=== PATIENT | female | born 1990 | race Caucasian/White ===

== ENCOUNTER 2021-03-03 20:06 | Emergency (ER) | payer SELFPAY ==
[2021-03-03 20:23] VITALS: BP 132/93; PULSE 90; RESP 16; TEMP 36.9; O2SAT 97; BMI 33.9
--- NOTE | 2021-03-03 20:47 | W.ED.FEMALGU ---
HPI - Female Genitourinary General: Chief complaint: Urogenital-Female Stated complaint: FLANK PAIN Time Seen by Provider: 03/03/21 20:22 Source: patient Mode of arrival: ambulatory Limitations: no limitations History of Present Illness: HPI Narrative: Patient is a 30-year-old female who presents to ED today with complaint of bilateral flank pain over the past 7 days. 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 She states she was treated on a telehealth visit in [place] and states the provider placed her on Macrobid. She completed 5 days of this without improvement. Was seen again and placed on Bactrim. She has had 4 out of her 5 day course and does not seem to be improving. She complains of urinary frequency and dark urine. No dysuria. No vomiting. No fevers. No injury or trauma to her back. MD elicited complaint: flank pain Pertinent past history: other (pyelonephritis ) Onset (ago): day(s) Location of symptoms: flank Severity: moderate Quality of pain: sharp Consistency: constant Vaginal discharge: none Vaginal bleeding: none Urinary symptoms: Flank Pain and Frequency Exacerbating factors: none Relieving factors: none Associated symptoms: Reports nausea; Deny abdominal pain, headache(s) or vaginal discharge Treatment prior to arrival: other (antibiotics ) Patient : No Date of Last Menstrual Period: 02/19/21 Review of Systems Const: Denies: fever(s), chills, body aches, change in appetite, change in weight, fatigue or malaise Card: Denies: chest pain Resp: Denies: dyspnea GI: Reports: nausea; Denies: abdominal pain, vomiting, diarrhea or change in bowel habits : Reports: flank pain and urinary frequency; Denies: difficulty voiding, urinary hesitancy, dribbling, urinary incontinence, genital lesions, genital pruritis, vaginal odor, vaginal bleeding or vaginal discharge Musc: Reports: back pain (flanks); Denies: neck pain, extremity pain, extremity swelling, joint pain or joint swelling Skin/Breast: Denies: rash Neuro: Denies: headache(s), numbness in extremities, weakness in extremities or sensory changes FOR[facility]LY [facility], [facility] ED Female Reproductive History: Date of last menstrual period: 02/19/21 Physical Exam Const: COMMON NORMALS: no acute distress, patient oriented x3, no limitations and alert GENERAL APPEARANCE: cooperative NUTRITIONAL APPEARANCE: overweight ORIENTATION/CONSCIOUSNESS: Yes awake, Yes oriented to person, Yes oriented to place and Yes oriented to time HENMT: COMMON NORMALS: normocephalic and atraumatic HEAD & SCALP: normocephalic and atraumatic Resp: COMMON NORMALS: normal respiratory effort and clear to auscultation bilaterally AUSCULTATION: clear to auscultation bilaterally Cardio: COMMON NORMALS: regular rate and regular rhythm RATE: regular rate RHYTHM: regular rhythm GI: COMMON NORMALS: Normal to inspection, nondistended, normoactive bowel sounds present, Soft to palpation, non-tender, No hepatosplenomegaly present and no masses PALPATION: Yes Soft to palpation and Yes No hepatosplenomegaly present : BLADDER/KIDNEY EXAM: Yes CVA tenderness bilateral Back/Pelvis: COMMON NORMALS: thoracic and lumbar spine normal to inspection, no thoracic nor lumbar tenderness, thoraco-lumbar ROM normal and straight leg raise negative bilaterally GENERAL BACK: Yes CVA tenderness Extremity: COMMON NORMALS: normal to inspection Neuro: COMMON NORMALS: patient oriented x3, moves all extremities, no focal motor deficits, no sensory deficits noted and gait normal SENSORIUM/ORIENTATION: Yes alert, Yes oriented to person, Yes oriented to place and Yes oriented to time Skin: COMMON NORMALS: no rashes or lesions noted GENERAL SKIN EXAM: no rashes or lesions noted TRAUMA: no lacerations or abrasions Course Vital Signs: Vital signs: Vital Signs Temperature 98.4 F 03/03/21 20:23 Pulse Rate 76 03/03/21 21:32 Respiratory Rate 16 03/03/21 21:32 Blood Pressure 121/80 03/03/21 20:56 Pulse Oximetry 97 03/03/21 21:32 MDM - Female MDM Narrative: Medical decision making narrative: Patient here with bilateral flank pain x1 week. She is not tachycardic or febrile. Her white count is 11.4. Her UA is completely normal. Given her tenderness and history I did elect to CT her abdomen/pelvis. This was essentially unremarkable. She did have a tiny nonobstructing right kidney stone. Incidental finding of adrenal nodule that she was made aware of. There was no evidence for pyelonephritis, hydronephrosis, or any other acute abnormalities at this time. Patient states she has an appointment with primary care next week. Recommend she follow-up regarding her discomfort. Strict return to ED precautions given for the weekend. Lab Data: Attestation: I reviewed the patient's lab results. Labs: Lab Results 03/03/21 03/03/21 03/03/21 Range/Units 20:37 20:50 20:50 WBC 11.4 H (4.0-10.0) 10^3/ uL RBC 4.41 (4.1-5.3) 10^6/u L Hgb 13.4 (11.5-15.3) g/dL Hct 40.1 (37.0-47.0) % MCV 90.9 (81-99) fL MCH 30.4 (28.0-34.0) pg MCHC 33.4 (30.0-36.0) g/dL RDW 12.5 (12.1-15.1) % Plt Count 313 (130-400) 10^3/c mm MPV 9.5 (7.4-10.4) fL Neut % (Auto) 62.0 % Lymph % (Auto) 26.3 % [place] % (Auto) 7.6 % Eos % (Auto) 3.1 % Baso % (Auto) 0.7 % Neut # (Auto) 7.09 (1.8-7.7) 10^3/u L Lymph # (Auto) 3.0 (0.8-4.8) 10^3/u L [place] # (Auto) 0.9 (0.2-0.9) 10^3/u L Eos # (Auto) 0.4 (0.0-0.8) 10^3/u L Baso # (Auto) 0.1 (0.0-0.1) 10^3/u L Nucleated RBC % (a uto) 0 % Nucleated RBCs # 0.0 /100WBC Sodium Cancelled Potassium Cancelled Chloride Cancelled Carbon Dioxide Cancelled Anion Gap Cancelled BUN Cancelled Creatinine Cancelled GFR Calculation Cancelled Glucose Cancelled Calculated Osmolal ity Cancelled Lactic Acid (0.5-2.2) mmol/L Calcium Cancelled Total Bilirubin Cancelled AST Cancelled ALT Cancelled Alkaline Phosphata se Cancelled Total Protein Cancelled Albumin Cancelled Globulin Cancelled HCG, Qual (Negative) Urine Color Straw (Yellow) Urine Appearance Clear (CLEAR) Urine pH 6 (5-7) Ur Specific Gravit y 1.010 (1.005-1.030) Urine Protein Neg (Negative) Urine Glucose (UA) Norm (Normal) Urine Ketones Negative (Negative) Urine Blood Neg (Negative) Urine Nitrate Negative (Negative) Urine Bilirubin Neg (Negative) Urine Urobilinogen Norm (Negative) mg/dL Ur Leukocyte Belk[place] ase Negative (Negative) 03/03/21 03/03/21 03/03/21 Range/Units 20:50 21:07 21:26 WBC (4.0-10.0) 10^3/ uL RBC (4.1-5.3) 10^6/u L Hgb (11.5-15.3) g/dL Hct (37.0-47.0) % MCV (81-99) fL MCH (28.0-34.0) pg MCHC (30.0-36.0) g/dL RDW (12.1-15.1) % Plt Count (130-400) 10^3/c mm MPV (7.4-10.4) fL Neut % (Auto) % Lymph % (Auto) % [place] % (Auto) % Eos % (Auto) % Baso % (Auto) % Neut # (Auto) (1.8-7.7) 10^3/u L Lymph # (Auto) (0.8-4.8) 10^3/u L [place] # (Auto) (0.2-0.9) 10^3/u L Eos # (Auto) (0.0-0.8) 10^3/u L Baso # (Auto) (0.0-0.1) 10^3/u L Nucleated RBC % (a uto) % Nucleated RBCs # /100WBC Sodium 135 L Potassium 4.1 Chloride 100 Carbon Dioxide 25 Anion Gap 14.1 BUN 11 Creatinine 0.8 GFR Calculation 83.1 L Glucose 95 Calculated Osmolal ity 279 L Lactic Acid 0.9 (0.5-2.2) mmol/L Calcium 8.9 Total Bilirubin 0.2 AST 9 ALT 8 Alkaline Phosphata se 57 Total Protein 6.8 Albumin 4.3 Globulin 2.5 HCG, Qual Negative (Negative) Urine Color (Yellow) Urine Appearance (CLEAR) Urine pH (5-7) Ur Specific Gravit y (1.005-1.030) Urine Protein (Negative) Urine Glucose (UA) (Normal) Urine Ketones (Negative) Urine Blood (Negative) Urine Nitrate (Negative) Urine Bilirubin (Negative) Urine Urobilinogen (Negative) mg/dL Ur Leukocyte Belkis ase (Negative) Imaging Data: CT Abd/Pel: Radiologist's impression: [address] [id number] Scan ReportSigned Patient: Lala Winn AUnit #: [id number]: [id number]#:[id number]/Sex: 30 / FADM Date: 03/03/21Loc: ERRoom/Bed:Attending Dr: Ordering Provider/Ordering MD: Ingrid Thorpe Date of Service: 03/03/21 Procedure(s): CT abdomen pelvis w con* [id number] Accession Number(s): [id number] Report Number: [id number] PROCEDURE INFORMATION: Exam: CT Abdomen And Pelvis With Contrast Exam date and time: 03/03/2021 10:00 PM Age: 30 years old Clinical indication: Abdominal pain; Lower; Prior surgery; Surgery date: 6+ months; Surgery type: Tailbone cyst; Patient HX: Bilateral flank pain x 3 wks TECHNIQUE: Imaging protocol: Computed tomography of the abdomen and pelvis with contrast. Total images: 274 Radiation optimization: All CT scans at this facility use at least one of these dose optimization techniques: automated exposure control; mA and/or kV adjustment per patient size (includes targeted exams where dose is matched to clinical indication); or iterative reconstruction. Contrast material: 95 ML OMNIPAQUE 300; Contrast volume: 95 ml; Contrast route: INTRAVENOUS (IV); COMPARISON: No relevant prior studies available. RADIATION DOSE METRICS: Total DLP (mGy-cm): 1524.5 FINDINGS: Lungs: Limited assessment of the lung bases fails to reveal evidence for active cardiopulmonary process. Liver: No visible hepatic mass or cystic structure. Gallbladder and bile ducts: Normal. No calcified stones. No ductal dilation. Pancreas: Pancreas is unremarkable. No visible pancreatic ductal ectasia. Spleen: Spleen unremarkable. Adrenal glands: Right adrenal nodule that measures 24 mm x 20 mm x 21 mm. Left adrenal gland normal. Kidneys and ureters: Bilateral duplex renal collecting systems. Moderate pelvicaliectasis of the inferior pole moiety of the right kidney with cortical scarring and thinning consistent with chronic reflux. No visible ureterolithiasis. Tiny nonobstructing calyceal nephrolithiasis foci at the equator of the right kidney superior pole moiety measuring under 3 mm. No superior pole moiety hydronephrosis or hydroureter. No visible ureterolithiasis of the superior pole moiety. Left kidney without hydronephrosis, nephrolithiasis, nephrocalcinosis, or ureterolithiasis. No evidence for pyelonephritis bilaterally. Stomach and bowel: Assessment of the hollow viscus fails to reveal evidence of active or acute pathology. Nonobstructed bowel pattern. No visible acute diverticulitis. No visible adynamic or reactive ileus. Appendix: The appendix is visualized and appears noninflamed. Intraperitoneal space: No visible evidence of mesenteric lymphadenitis or active mesenteritis/panniculitis. No visible pneumoperitoneum or intraperitoneal ascites. Vasculature: Portal vein patent. The abdominal aorta is nonaneurysmal. Lymph nodes: No current visible evidence of active mesenteric or retroperitoneal lymphadenopathy. Urinary bladder: Urinary bladder unremarkable. No visible bladder stone. Reproductive: Unremarkable as visualized. Bones/joints: No visible active or acute osseous pathology. Soft tissues: Unremarkable. CT/CT abdomen pelvis w con* [id number] IMPRESSION: 1. Bilateral duplex renal collecting systems. 2. Moderate pelvicaliectasis of the inferior pole moiety of the right kidney with cortical scarring and thinning consistent with chronic reflux. No visible ureterolithiasis. 3. Tiny nonobstructing calyceal nephrolithiasis foci at the equator of the right kidney superior pole moiety measuring under 3 mm. No superior pole moiety hydronephrosis or ureterolithiasis. 4. Left kidney without hydronephrosis, nephrolithiasis, nephrocalcinosis, or ureterolithiasis. 5. Right adrenal nodule that measures 24 mm x 20 mm x 21 mm. Non-emergent adrenal CT is recommended. (Reference: Edgardo). COMMENTS: Consistent with the [employer]'s Incidental Findings Committee white paper (J Am Drew Radiol 2018): Any incidental renal lesion less than 1 cm or classified as too small to characterize, or any incidental cystic renal lesion characterized as simple-appearing, is likely benign. No follow-up imaging is recommended for these lesions per consensus recommendations based on imaging criteria. REFERENCES: Edgardo SWAN et al. Management of Incidental Adrenal Masses: A White Paper of the ACR Incidental Findings Committee. J Am Drew Radiol. 2017;14(8):9525-2929. Radiation Dose CTDIVOL = (mGy): DLP = 1524.5 (mGy-cm) Dictated By:Mariluz Falcon By:Mariluz Falcon Date/Time:03/03/21 [id number]/ [id number] Discharge Plan Discharge Patient Disposition: Home Clinical Impression: Bilateral flank pain Condition: Stable Discharge Orders: Discharge ED (Routine); Ordered 03/04/21 Ordered By: Ingrid Thorpe Patient Instructions: Flank Pain (ED) Coding Level of Care Code ED Civil Structural Engineer for Chg Fwd Exam Comprehensive
[2021-03-03 20:55] LABS: Add Urine Microscopic? NO; Charge for UA Resulting for Rev
[2021-03-03 20:56] VITALS: BP 121/80; PULSE 74; RESP 16; O2SAT 97
[2021-03-03 20:58] LABS: Basophils # 0.1 10^3/uL (0.0-0.1); Basophils % 0.7 %; Eosinophils # 0.4 10^3/uL (0.0-0.8); Eosinophils % 3.1 %; Hematocrit 40.1 % (37.0-47.0); Hemoglobin 13.4 g/dL (11.5-15.3); Lymphocytes % 26.3 %; Mean Corpuscular HGB Conc 33.4 g/dL (30.0-36.0); Mean Corpuscular Hemoglobin 30.4 pg (28.0-34.0); Mean Corpuscular Volume 90.9 fL (81-99); Mean Platelet Volume 9.5 fL (7.4-10.4); Monocytes # 0.9 10^3/uL (0.2-0.9); Monocytes % 7.6 %; Neutrophils # 7.09 10^3/uL (1.8-7.7); Nucleated Red Blood Cells % 0 %; Platelet Count 313 10^3/cmm (130-400); Red Blood Count 4.41 10^6/uL (4.1-5.3); Red Cell Distribution Width 12.5 % (12.1-15.1); White Blood Count 11.4 10^3/uL (4.0-10.0)
[2021-03-03 21:10] LABS: Bilirubin Urine Neg (Negative); Blood Urine Neg (Negative); Glucose Urine UA Norm (Normal); Ketones Urine Negative (Negative); Leukocyte Esterase Urine Negative (Negative); Nitrate Urine Negative (Negative); Protein Urine Neg (Negative); Urine Appearance Clear (CLEAR); Urine Color Straw (Yellow); Urobilinogen Urine Norm (Negative); pH Urine 6 (5-7)
[2021-03-03 21:18] LABS: HCG, Serum Qual Negative (Negative)
[2021-03-03 21:32] VITALS: PULSE 76; RESP 16; O2SAT 97
[2021-03-03 21:39] LABS: Lactic Sepsis W/Reflex 0.9 mmol/L (0.5-2.2)
[2021-03-03 21:59] LABS: Alanine Aminotransferase 8 U/L (0-33); Albumin Level 4.3 g/dL (3.5-5.2); Alkaline Phosphatase 57 IU/L (35-105); Anion Gap 14.1 (5-19); Aspartate Amino Transferase 9 U/L (0-32); Blood Urea Nitrogen 11 mg/dL (6-20); Calcium 8.9 mg/dL (8.5-10.5); Carbon Dioxide 25 mmol/L (22-29); Chloride 100 mmol/L (98-107); Globulin 2.5 g/dL (1.3-4.6); Glomerular Filtration Rate 83.1 mL/min (90-130); Glucose 95 mg/dL (65-115); Osmolality Calculated 279 mOsm/kg (285-295); Potassium 4.1 mmol/L (3.5-5.1); Sodium 135 mmol/L (136-145); Total Bilirubin 0.2 mg/dL (0.15-1.2); Total Protein 6.8 g/dL (6.6-8.7)
--- NOTE | 2021-03-03 22:00 | CTR_ITS ---
PROCEDURE INFORMATION: Exam: CT Abdomen And Pelvis With Contrast Exam date and time: 03/03/2021 10:00 PM Age: 30 years old Clinical indication: Abdominal pain; Lower; Prior surgery; Surgery date: 6+ months; Surgery type: Tailbone cyst; Patient HX: Bilateral flank pain x 3 wks TECHNIQUE: Imaging protocol: Computed tomography of the abdomen and pelvis with contrast. Total images: 274 Radiation optimization: All CT scans at this facility use at least one of these dose optimization techniques: automated exposure control; mA and/or kV adjustment per patient size (includes targeted exams where dose is matched to clinical indication); or iterative reconstruction. Contrast material: 95 ML OMNIPAQUE 300; Contrast volume: 95 ml; Contrast route: INTRAVENOUS (IV); COMPARISON: No relevant prior studies available. RADIATION DOSE METRICS: Total DLP (mGy-cm): 1524.5 FINDINGS: Lungs: Limited assessment of the lung bases fails to reveal evidence for active cardiopulmonary process. Liver: No visible hepatic mass or cystic structure. Gallbladder and bile ducts: Normal. No calcified stones. No ductal dilation. Pancreas: Pancreas is unremarkable. No visible pancreatic ductal ectasia. Spleen: Spleen unremarkable. Adrenal glands: Right adrenal nodule that measures 24 mm x 20 mm x 21 mm. Left adrenal gland normal. Kidneys and ureters: Bilateral duplex renal collecting systems. Moderate pelvicaliectasis of the inferior pole moiety of the right kidney with cortical scarring and thinning consistent with chronic reflux. No visible ureterolithiasis. Tiny nonobstructing calyceal nephrolithiasis foci at the equator of the right kidney superior pole moiety measuring under 3 mm. No superior pole moiety hydronephrosis or hydroureter. No visible ureterolithiasis of the superior pole moiety. Left kidney without hydronephrosis, nephrolithiasis, nephrocalcinosis, or ureterolithiasis. No evidence for pyelonephritis bilaterally. Stomach and bowel: Assessment of the hollow viscus fails to reveal evidence of active or acute pathology. Nonobstructed bowel pattern. No visible acute diverticulitis. No visible adynamic or reactive ileus. Appendix: The appendix is visualized and appears noninflamed. Intraperitoneal space: No visible evidence of mesenteric lymphadenitis or active mesenteritis/panniculitis. No visible pneumoperitoneum or intraperitoneal ascites. Vasculature: Portal vein patent. The abdominal aorta is nonaneurysmal. Lymph nodes: No current visible evidence of active mesenteric or retroperitoneal lymphadenopathy. Urinary bladder: Urinary bladder unremarkable. No visible bladder stone. Reproductive: Unremarkable as visualized. Bones/joints: No visible active or acute osseous pathology. Soft tissues: Unremarkable. CT/CT abdomen pelvis w con* [id number] IMPRESSION: 1. Bilateral duplex renal collecting systems. 2. Moderate pelvicaliectasis of the inferior pole moiety of the right kidney with cortical scarring and thinning consistent with chronic reflux. No visible ureterolithiasis. 3. Tiny nonobstructing calyceal nephrolithiasis foci at the equator of the right kidney superior pole moiety measuring under 3 mm. No superior pole moiety hydronephrosis or ureterolithiasis. 4. Left kidney without hydronephrosis, nephrolithiasis, nephrocalcinosis, or ureterolithiasis. 5. Right adrenal nodule that measures 24 mm x 20 mm x 21 mm. Non-emergent adrenal CT is recommended. (Reference: Edgardo). COMMENTS: Consistent with the [employer] [employer]'s Incidental Findings Committee white paper (J Am Drew Radiol 2018): Any incidental renal lesion less than 1 cm or classified as too small to characterize, or any incidental cystic renal lesion characterized as simple-appearing, is likely benign. No follow-up imaging is recommended for these lesions per consensus recommendations based on imaging criteria. REFERENCES: Edgardo SWAN, et al. Management of Incidental Adrenal Masses: A White Paper of the ACR Incidental Findings Committee. J Am Drew Radiol. 2017;14(8):4057-5789. Radiation Dose CTDIVOL = (mGy): DLP = 1524.5 (mGy-cm)
[2021-03-03] MEDS: iohexol 300 mg/mL 100 mL Btl IV (22:24)
[2021-03-04 00:18] VITALS: BP 120/95; PULSE 75; RESP 18; O2SAT 98
== END 2021-03-04 00:18 | disposition home or self-care (01) ==
PROVIDERS: Emergency Provider Physician Assistant
DX: R10.9 Unspecified abdominal pain (principal)
CPT/HCPCS: 74177; 80053; 81003; 83605; 84703; 85025; 87040; 99283; Q9967

== ENCOUNTER 2021-05-26 10:12 | Outpatient (CLI) | payer SELFPAY ==
--- NOTE | 2021-05-26 10:16 | CT_ITS ---
WS: [id number] CT ABDOMEN PELVIS TECHNIQUE: Noncontrast CT of the abdomen and pelvis with coronal and sagittal reformatted images. CLINICAL INFORMATION: ADRENAL MASS, RIGHT COMPARISON: CT March 03, 2021 DLP: 931.[address] scans at [facility] use at least one of these dose optimization techniques: automated e xposure control; mA and/or kV adjustment per patient size (includes targeted exams where dose is matc hed to clinical indication); or iterative reconstruction. FINDINGS: Right adrenal nodule measuring 2.2 x 1.9 cm unchanged from previous. Hounsfield units compatible with adrenal adenoma. Left adrenal gland is normal. Normal noncontrast liver and gallbladder. Normal GE junction. Normal noncontrast spleen. Lung bases a re well aerated. Tiny nonobstructing subcentimeter right parenchymal calculus. No obstructing renal o r ureteral calculi. Noncontrast pancreas is normal. Noncontrast abdominal aorta is normal. Normal sigmoid colon. No evide nce of small or large bowel obstruction. Normal appendix in the right lower quadrant. No abdominal or pelvic lymphadenopathy. No inguinal lymphadenopathy. No free fluid in the abdomen or pelvis. CT/CT abdomen pelvis wo con [id number] IMPRESSION: 1. 2.2 x 1.9 cm right adrenal lesion compatible with incidental adrenal adenom a. 2. No obstructing renal or ureteral calculi. Tiny nonobstructing right renal p arenchymal calculus. 3. Cortical scarring right kidney. Duplicated renal collecting systems bilater ally. 4. Normal appendix in the right lower quadrant. 5. No other significant changes.
== END 2021-05-26 10:13 | disposition home or self-care (01) ==
PROVIDERS: Visit Provider Clinical Nurse Specialist Adult Health
DX: E27.8 Other specified disorders of adrenal gland (principal); N20.0 Calculus of kidney; D35.01 Benign neoplasm of right adrenal gland
CPT/HCPCS: 74176

== ENCOUNTER → 2023-10-09 11:22 | Outpatient (BNVA) | payer SELFPAY | PROVIDERS: Visit Provider Nurse Practitioner Family | DX: R39.9 Unspecified symptoms and signs involving the genitourinary system (principal) | CPT/HCPCS: 81000 ==